=== PATIENT | male | born 1965 | race Caucasian/White ===

== ENCOUNTER → 2017-02-04 | Outpatient (CLI) | payer OTHER | LOC: OPSV 10:09 | DX: Z53.9 Procedure and treatment not carried out, unspecified reason (principal) ==

== ENCOUNTER → 2017-02-08 | Outpatient (CLI) | payer OTHER ==
[2017-02-08 10:25] LABS: HEMOGLOBIN 15.7 gm/dl (14.0-17.5); RED BLOOD COUNT 5.48 M/UL (4.20-5.50); WHITE BLOOD COUNT 4.4 K/UL (4.5-11.0)
== END ==
LOC: OPSV 08:57
PROVIDERS: Psychiatry & Neurology Neurology
DX: G35 Multiple sclerosis (principal); N39.0 Urinary tract infection, site not specified; Z79.899 Other long term (current) drug therapy
CPT/HCPCS: 80076; 85025; J1642

== ENCOUNTER → 2020-10-04 | Outpatient (CLI) | payer OTHER | LOC: MRI 09-30 08:30 | DX: G35 Multiple sclerosis (principal); R90.82 White matter disease, unspecified; E07.9 Disorder of thyroid, unspecified; M50.30 Other cervical disc degeneration, unspecified cervical region; M47.812 Spondylosis without myelopathy or radiculopathy, cervical region; M47.813 Spondylosis without myelopathy or radiculopathy, cervicothoracic region | CPT/HCPCS: 70553; 72156; A9577 ==

== ENCOUNTER → 2020-10-07 | Outpatient (CLI) | payer OTHER ==
[~2020-10-07] VITALS: Ht 188 cm; Wt 115.7 kg
[2020-10-07 13:41] LABS: HEMOGLOBIN 15.5 gm/dl (14.0-17.5); RED BLOOD COUNT 5.35 M/UL (4.20-5.50); WHITE BLOOD COUNT 4.2 K/UL (4.5-11.0)
[2020-10-07 13:59] LABS: BUN/CREATININE RATIO 15 (0-10)
== END ==
LOC: OPSV 13:00
PROVIDERS: Psychiatry & Neurology Neurology
DX: G35 Multiple sclerosis (principal); I87.2 Venous insufficiency (chronic) (peripheral)
CPT/HCPCS: 36591; 80053; 85025; 96375; J1642

== ENCOUNTER → 2021-02-19 | Outpatient (CLI) | payer OTHER | LOC: EXRD 13:30 | DX: E07.89 Other specified disorders of thyroid (principal) | CPT/HCPCS: 76536 ==

== ENCOUNTER → 2021-02-20 | Outpatient (CLI) | payer OTHER ==
[2021-02-20 11:22] LABS: HEMOGLOBIN 15.4 gm/dl (14.0-17.5); RED BLOOD COUNT 5.24 M/UL (4.20-5.50)
[2021-02-20 11:48] LABS: BUN/CREATININE RATIO 14 (0-10)
== END ==
LOC: OPSV 10:00
PROVIDERS: Psychiatry & Neurology Neurology
DX: G35 Multiple sclerosis (principal); I87.2 Venous insufficiency (chronic) (peripheral)
CPT/HCPCS: 36591; 80053; 85025; J1642

== ENCOUNTER → 2021-05-16 | Outpatient (CLI) | payer OTHER | LOC: US 09:49 | DX: E04.1 Nontoxic single thyroid nodule (principal); Z80.8 Family history of malignant neoplasm of other organs or systems ==